=== PATIENT | female | born 1965 | race Two or more races ===

== ENCOUNTER 2022-10-30 10:59 | Emergency (ER) | payer OTHER ==
[~2022-10-30] VITALS: Ht 165.1 cm; Wt 104.3 kg
[2022-10-30] MEDS ORDERED: GLIMEPIRIDE4 MG (11:32)
[2022-10-30] MEDS ORDERED: METFORMIN HCL1000 M2 (11:32)
[2022-10-30] MEDS ORDERED: IBU800 MG PO (16:00)
== END 2022-10-30 16:10 | disposition home or self-care (01) ==
LOC: ER 10:59
DX: J40 Bronchitis, not specified as acute or chronic (principal); G44.89 Other headache syndrome; N39.0 Urinary tract infection, site not specified; E11.9 Type 2 diabetes mellitus without complications; Z20.822 Contact with and (suspected) exposure to COVID-19